=== PATIENT | female | born 1940 | race Caucasian/White ===

== ENCOUNTER 2023-09-27 19:19 | Emergency (ER) | payer MEDICARE ==
[~2023-09-27] VITALS: Ht 162.6 cm; Wt 65.8 kg
[2023-09-27 19:19] VITALS: BP 112/47; TEMP 98.2; O2SAT 96
== END 2023-09-27 20:48 | disposition home or self-care (01) ==
LOC: ER 19:33
DX: Z43.3 Encounter for attention to colostomy (principal); I10 Essential (primary) hypertension; Z85.038 Personal history of other malignant neoplasm of large intestine; Z88.0 Allergy status to penicillin; Z88.2 Allergy status to sulfonamides; Z88.1 Allergy status to other antibiotic agents

== ENCOUNTER 2023-10-19 15:25 | Emergency (ER) | payer MEDICARE ==
[~2023-10-19] VITALS: Ht 152.4 cm; Wt 74.8 kg
[2023-10-19 17:43] VITALS: BP 139/62; TEMP 98.7; O2SAT 99
== END 2023-10-19 17:42 | disposition home or self-care (01) ==
LOC: ER 15:28
DX: Z43.3 Encounter for attention to colostomy (principal); I10 Essential (primary) hypertension; Z60.2 Problems related to living alone; Z88.0 Allergy status to penicillin; Z88.2 Allergy status to sulfonamides

== ENCOUNTER → 2023-11-02 | Emergency (ER) | payer MEDICARE ==
[~2023-11-02] VITALS: Ht 152.4 cm; Wt 73.9 kg
[2023-11-02 12:01] VITALS: BP 125/61; TEMP 97.9
[2023-11-02] MEDS: LOPERAMIDE HCL (2 MG CAP) 2 MG CAPSULE PO ONE (13:23)
[2023-11-02 16:05] VITALS: O2SAT 97
== END | disposition home or self-care (01) ==
LOC: ER 11:54
DX: K94.09 Other complications of colostomy (principal); I10 Essential (primary) hypertension; Z88.0 Allergy status to penicillin; Z88.2 Allergy status to sulfonamides; Z60.2 Problems related to living alone

== ENCOUNTER 2023-11-09 14:06 | Emergency (ER) | payer MEDICARE ==
[~2023-11-09] VITALS: Ht 167.6 cm; Wt 74.8 kg
[2023-11-09 15:44] VITALS: BP 119/59; TEMP 208.2; O2SAT 95
== END 2023-11-09 15:44 | disposition home or self-care (01) ==
LOC: ER 14:44
DX: K94.03 Colostomy malfunction (principal); I10 Essential (primary) hypertension; Z85.038 Personal history of other malignant neoplasm of large intestine; Z88.0 Allergy status to penicillin; Z88.2 Allergy status to sulfonamides; Z88.8 Allergy status to other drugs, medicaments and biological substances; Z60.2 Problems related to living alone
CPT/HCPCS: 99283; A4362

== ENCOUNTER 2023-11-16 20:49 | Emergency (ER) | payer MEDICARE ==
[~2023-11-16] VITALS: Ht 167.6 cm; Wt 71.7 kg
[2023-11-16 21:37] VITALS: BP 143/56; TEMP 98.4
[2023-11-17 00:25] VITALS: O2SAT 100
== END 2023-11-17 00:25 | disposition home or self-care (01) ==
LOC: ER 20:52
DX: Z43.3 Encounter for attention to colostomy (principal); I10 Essential (primary) hypertension; Z85.038 Personal history of other malignant neoplasm of large intestine; Z88.2 Allergy status to sulfonamides; Z88.0 Allergy status to penicillin; Z88.8 Allergy status to other drugs, medicaments and biological substances; Z60.2 Problems related to living alone

== ENCOUNTER 2023-11-19 10:04 | Inpatient (IN) | payer MEDICARE ==
[~2023-11-19] VITALS: Ht 167.6 cm; Wt 74.8 kg
[2023-11-19] MEDS ORDERED: MORPHINE SULFATE INJ 2 MG/ML DISP.SYRIN ONE (10:25)
[2023-11-19] MEDS: IV NS 0.9% 1,000 ML BAG IV ONE (10:30)
[2023-11-19] MEDS: MORPHINE SULFATE INJ 2 MG/ML DISP.SYRIN IV ONE (10:30)
[2023-11-19 10:46] LABS: BASOPHILS % (AUTO) 0.6 % (0.0-2.0); EOSINOPHILS # (AUTO) 0.1 K/uL (0.0-0.7); EOSINOPHILS % (AUTO) 5.7 % (0.0-6.0); HEMATOCRIT 29 % (33-45); HEMOGLOBIN 9.5 g/dL (11.5-14.8); LYMPHOCYTES # (AUTO) 0.3 K/uL (0.8-4.8); LYMPHOCYTES % (AUTO) 12.5 % (20.0-44.0); MEAN CORPUSCULAR HEMOGLOBIN 28 PG (26.0-33.0); MEAN CORPUSCULAR HGB CONC 33 g/dl (31.0-36.0); MEAN CORPUSCULAR VOLUME 85 fL (82-100); MONOCYTES # (AUTO) 0.2 K/uL (0.1-1.30); MONOCYTES % (AUTO) 8.4 % (2.0-12.0); NEUTROPHILS # (AUTO) 1.7 K/uL (1.8-8.9); NEUTROPHILS % (AUTO) 72.8 % (43.0-81.0); PLATELET COUNT (AUTO) 99 K/uL (150-450); RED BLOOD CELL COUNT(AUTO) 3.45 MIL/uL (4.0-5.2); RED CELL DISTRIBUTION WIDTH 23.2 % (11.5-15.0); WHITE BLOOD COUNT (AUTO) 2.4 K/uL (4.3-11.0)
[2023-11-19 10:54] LABS: CALCIUM, SERUM 8.5 mg/dL (8.5-10.1); CARBON DIOXIDE 30 mmol/L (21-32); CHLORIDE 105 mmol/L (98-107); CREATININE 1.2 mg/dL (0.6-1.3); GLUCOSE 136 mg/dL (74-106); POTASSIUM 3.3 mmol/L (3.5-5.1); SODIUM SERUM 137 mmol/L (136-145); UREA NITROGEN, BLOOD 21 mg/dL (7-18)
[2023-11-19 11:40] LABS: ANISOCYTOSIS 2+; BASOPHILS % (MANUAL) 0 % (0.0-2.0); EOSINOPHILS % (MANUAL) 4 % (0-4); LYMPHOCYTES % (MANUAL) 14 % (16-48); MONOCYTES % (MANUAL) 6 % (0-11.0); NEUTROPHILS % (MANUAL) 76 (42-76); PLATELET ESTIMATE DECREASED
[2023-11-19] MEDS ORDERED: CHOL500062 PO (12:26)
[2023-11-19] MEDS ORDERED: ASPI-1420 PO (12:26)
[2023-11-19] MEDS ORDERED: ATOR20TA PO (12:26)
[2023-11-19] MEDS ORDERED: FERR325T24 PO (12:26)
[2023-11-19] MEDS ORDERED: AMLO-212 PO (12:26)
[2023-11-19] MEDS ORDERED: CYAN250010 PO (12:26)
[2023-11-19] MEDS ORDERED: FURO20TA4 PO (12:26)
[2023-11-19 13:00] VITALS: BP 160/52; TEMP 98.3; O2SAT 99
[2023-11-19] MEDS ORDERED: LOPERAMIDE HCL (2 MG CAP) 2 MG CAPSULE PO PRN (13:00)
[2023-11-19] MEDS ORDERED: ACETAMINOPHEN 325 MG TABLET PO PRN (13:00)
[2023-11-19] MEDS ORDERED: hydrALAZINE HCL IV 20 MG VIAL IV PRN (13:00)
[2023-11-19] MEDS ORDERED: ONDANSETRON HCL/PF 4 MG/2 ML VIAL IVP PRN (13:00)
[2023-11-19] MEDS: IV NS 0.9% 1,000 ML IV SCH (13:33)
[2023-11-19 16:00] VITALS: BP 141/72; TEMP 98.4; O2SAT 99
[2023-11-19] MEDS: POTASSIUM CHLORIDE 20 MEQ TAB.PRT.SR PO STA (16:42)
[2023-11-19] MEDS: ATORVASTATIN 10 MG TABLET PO SCH (17:20)
[2023-11-19 20:00] VITALS: BP 141/55; TEMP 98.1; O2SAT 99
[2023-11-19 20:18] VITALS: BP 141/55; TEMP 98.1; O2SAT 99
[2023-11-19] MEDS: HEPARIN SODIUM, PORCINE 5000 UNITS/1 ML VIAL SQ SCH (20:50)
[2023-11-19] MEDS: MORPHINE SULFATE INJ 2 MG/ML DISP.SYRIN IV PRN (22:39)
[2023-11-20] MEDS: TEMAZEPAM 7.5 MG CAPSULE PO PRN (00:43)
[2023-11-20 07:04] LABS: BASOPHILS % (AUTO) 0.8 % (0.0-2.0); EOSINOPHILS # (AUTO) 0.3 K/uL (0.0-0.7); EOSINOPHILS % (AUTO) 12.5 % (0.0-6.0); HEMATOCRIT 27 % (33-45); HEMOGLOBIN 8.7 g/dL (11.5-14.8); LYMPHOCYTES # (AUTO) 0.7 K/uL (0.8-4.8); LYMPHOCYTES % (AUTO) 27.4 % (20.0-44.0); MEAN CORPUSCULAR HEMOGLOBIN 27 PG (26.0-33.0); MEAN CORPUSCULAR HGB CONC 32 g/dl (31.0-36.0); MEAN CORPUSCULAR VOLUME 85 fL (82-100); MONOCYTES # (AUTO) 0.2 K/uL (0.1-1.30); MONOCYTES % (AUTO) 7.5 % (2.0-12.0); NEUTROPHILS # (AUTO) 1.4 K/uL (1.8-8.9); NEUTROPHILS % (AUTO) 51.8 % (43.0-81.0); PLATELET COUNT (AUTO) 88 K/uL (150-450); RED BLOOD CELL COUNT(AUTO) 3.17 MIL/uL (4.0-5.2); RED CELL DISTRIBUTION WIDTH 22.7 % (11.5-15.0); WHITE BLOOD COUNT (AUTO) 2.7 K/uL (4.3-11.0)
[2023-11-20 07:33] LABS: ALANINE AMINOTRANSFERASE 26 U/L (12-78); ALBUMIN 2.2 g/dL (3.4-5.0); ALKALINE PHOSPHATASE 82 U/L (46-116); ASPARTATE AMINOTRANSFERASE 32 U/L (15-37); BILIRUBIN,TOTAL 0.6 mg/dL (0.2-1.0); CALCIUM, SERUM 8.2 mg/dL (8.5-10.1); CARBON DIOXIDE 28 mmol/L (21-32); CHLORIDE 112 mmol/L (98-107); GLUCOSE 84 mg/dL (74-106); MAGNESIUM 1.6 mg/dL (1.8-2.4); PHOSPHORUS 2.3 mg/dL (2.5-4.9); POTASSIUM 3.7 mmol/L (3.5-5.1); SODIUM SERUM 141 mmol/L (136-145); TOTAL PROTEIN, SERUM 5.2 g/dL (6.4-8.2); UREA NITROGEN, BLOOD 14 mg/dL (7-18)
[2023-11-20 08:00] VITALS: BP 122/69; TEMP 98.2; O2SAT 98
[2023-11-20] MEDS: FERROUS SULFATE (325 MG) 325 MG/TAB TABLET PO SCH (09:10)
[2023-11-20] MEDS: FUROSEMIDE 20 MG TABLET PO SCH (09:10)
[2023-11-20] MEDS: ASPIRIN EC 81 MG TABLET.DR PO SCH (09:10)
[2023-11-20] MEDS: AMLODIPINE BESYLATE 5 MG TABLET PO SCH (09:11)
[2023-11-20 10:22] LABS: BASOPHILS % (MANUAL) 0 % (0.0-2.0); EOSINOPHILS % (MANUAL) 13 % (0-4); LYMPHOCYTES % (MANUAL) 24 % (16-48); MONOCYTES % (MANUAL) 3 % (0-11.0); NEUTROPHILS % (MANUAL) 60 (42-76); PLATELET ESTIMATE DECREASED
[2023-11-20 10:23] LABS: ANISOCYTOSIS 1+
[2023-11-20] MEDS: MAGNESIUM OXIDE 400 MG TABLET PO ONE (11:36)
[2023-11-20 16:00] VITALS: BP 155/63; TEMP 98.6; O2SAT 96
[2023-11-20] MEDS: K PHOS NEUTRAL 250 MG TABLET PO ONE (16:07)
[2023-11-20 20:00] VITALS: BP 145/62; TEMP 98.6; O2SAT 95
[2023-11-20 20:32] VITALS: BP 145/62; TEMP 98.6; O2SAT 95
[2023-11-20 20:47] VITALS: BP 145/62; TEMP 98.6; O2SAT 95
[2023-11-21 08:32] VITALS: BP 159/68; TEMP 98.5; O2SAT 96
[2023-11-21 09:37] LABS: BASOPHILS % (AUTO) 0.6 % (0.0-2.0); EOSINOPHILS # (AUTO) 0.3 K/uL (0.0-0.7); EOSINOPHILS % (AUTO) 9.7 % (0.0-6.0); HEMATOCRIT 29 % (33-45); HEMOGLOBIN 9.4 g/dL (11.5-14.8); LYMPHOCYTES # (AUTO) 0.7 K/uL (0.8-4.8); LYMPHOCYTES % (AUTO) 25.2 % (20.0-44.0); MEAN CORPUSCULAR HEMOGLOBIN 28 PG (26.0-33.0); MEAN CORPUSCULAR HGB CONC 33 g/dl (31.0-36.0); MEAN CORPUSCULAR VOLUME 84 fL (82-100); MONOCYTES # (AUTO) 0.2 K/uL (0.1-1.30); MONOCYTES % (AUTO) 8.6 % (2.0-12.0); NEUTROPHILS # (AUTO) 1.6 K/uL (1.8-8.9); NEUTROPHILS % (AUTO) 55.9 % (43.0-81.0); PLATELET COUNT (AUTO) 99 K/uL (150-450); RED BLOOD CELL COUNT(AUTO) 3.41 MIL/uL (4.0-5.2); RED CELL DISTRIBUTION WIDTH 22.2 % (11.5-15.0); WHITE BLOOD COUNT (AUTO) 2.9 K/uL (4.3-11.0)
[2023-11-21 09:43] LABS: CALCIUM, SERUM 8.6 mg/dL (8.5-10.1); CARBON DIOXIDE 26 mmol/L (21-32); CHLORIDE 107 mmol/L (98-107); CREATININE 1.2 mg/dL (0.6-1.3); GLUCOSE 120 mg/dL (74-106); POTASSIUM 3.7 mmol/L (3.5-5.1); SODIUM SERUM 140 mmol/L (136-145); UREA NITROGEN, BLOOD 13 mg/dL (7-18)
[2023-11-21 09:51] LABS: ALANINE AMINOTRANSFERASE 27 U/L (12-78); ALKALINE PHOSPHATASE 94 U/L (46-116); ASPARTATE AMINOTRANSFERASE 27 U/L (15-37); BILIRUBIN,TOTAL 0.4 mg/dL (0.2-1.0); PHOSPHORUS 3.5 mg/dL (2.5-4.9); TOTAL PROTEIN, SERUM 5.1 g/dL (6.4-8.2)
[2023-11-21] MEDS: POLYETHYLENE GLYCOL 3350 17 GM POWD.PACK PO ONE (10:25)
[2023-11-21 11:30] LABS: ANISOCYTOSIS 1+; BASOPHILS % (MANUAL) 0 % (0.0-2.0); EOSINOPHILS % (MANUAL) 10 % (0-4); LYMPHOCYTES % (MANUAL) 22 % (16-48); MONOCYTES % (MANUAL) 11 % (0-11.0); NEUTROPHILS % (MANUAL) 59 (42-76); PLATELET ESTIMATE DECREASED
[2023-11-21 16:12] VITALS: BP 136/54; TEMP 98.2; O2SAT 97
[2023-11-21] MEDS: DOCUSATE SODIUM LIQ 100 MG/10 ML UDC PO ONE (19:50)
[2023-11-21 20:00] VITALS: BP 139/61; TEMP 98.4; O2SAT 97
[2023-11-21] MEDS ORDERED: MENTHOL/CETYLPYRD (CEPACOL) 1 LOZ LOZENGE PO PRN (22:00)
[2023-11-22 09:32] VITALS: BP 127/56
[2023-11-22 10:21] LABS: CALCIUM, SERUM 8.6 mg/dL (8.5-10.1); CARBON DIOXIDE 27 mmol/L (21-32); CHLORIDE 109 mmol/L (98-107); CREATININE 1.1 mg/dL (0.6-1.3); GLUCOSE 118 mg/dL (74-106); POTASSIUM 3.4 mmol/L (3.5-5.1); SODIUM SERUM 143 mmol/L (136-145); UREA NITROGEN, BLOOD 15 mg/dL (7-18)
[2023-11-22] MEDS ORDERED: POLY17PO4 PO (11:23)
== END 2023-11-22 15:45 | disposition home health service (06) | DRG 641 ==
LOC: ER 10:12 → MED 12:36
PROVIDERS: ADMIT Internal Medicine; ATTEND Internal Medicine
DX: E87.6 Hypokalemia (principal); D61.818 Other pancytopenia; R19.7 Diarrhea, unspecified; I10 Essential (primary) hypertension; Z85.038 Personal history of other malignant neoplasm of large intestine; Z93.3 Colostomy status; E78.5 Hyperlipidemia, unspecified; D50.9 Iron deficiency anemia, unspecified; Z88.0 Allergy status to penicillin; Z88.1 Allergy status to other antibiotic agents; Z88.2 Allergy status to sulfonamides; Z92.21 Personal history of antineoplastic chemotherapy; K59.00 Constipation, unspecified
CPT/HCPCS: 36415; 80048-TC; 80053-TC; 83735-TC; 84100-TC; 85025-TC; A4223; A6403; G0378; J1644; J2270; J7030

== ENCOUNTER 2023-11-23 13:25 | Inpatient (IN) | payer MEDICARE ==
[~2023-11-23] VITALS: Ht 167.6 cm; Wt 86.2 kg
[~2023-11-23 13:25] MED LIST: AMLO-212 PO; ASPI-1420 PO; ATOR20TA PO; CHOL500062 PO; CYAN250010 PO; FERR325T24 PO; FURO20TA4 PO; POLY17PO4 PO
[2023-11-23 15:39] LABS: BASOPHILS % (AUTO) 0.6 % (0.0-2.0); EOSINOPHILS # (AUTO) 0.1 K/uL (0.0-0.7); EOSINOPHILS % (AUTO) 2.9 % (0.0-6.0); HEMATOCRIT 29 % (33-45); HEMOGLOBIN 9.5 g/dL (11.5-14.8); LYMPHOCYTES # (AUTO) 0.5 K/uL (0.8-4.8); MEAN CORPUSCULAR HEMOGLOBIN 28 PG (26.0-33.0); MEAN CORPUSCULAR HGB CONC 32 g/dl (31.0-36.0); MEAN CORPUSCULAR VOLUME 86 fL (82-100); MONOCYTES # (AUTO) 0.4 K/uL (0.1-1.30); MONOCYTES % (AUTO) 8.3 % (2.0-12.0); NEUTROPHILS % (AUTO) 78.2 % (43.0-81.0); PLATELET COUNT (AUTO) 102 K/uL (150-450); RED BLOOD CELL COUNT(AUTO) 3.41 MIL/uL (4.0-5.2); WHITE BLOOD COUNT (AUTO) 5.1 K/uL (4.3-11.0)
[2023-11-23 15:48] LABS: CARBON DIOXIDE 27 mmol/L (21-32); CHLORIDE 108 mmol/L (98-107); CREATININE 1.3 mg/dL (0.6-1.3); GLUCOSE 89 mg/dL (74-106); POTASSIUM 3.3 mmol/L (3.5-5.1); SODIUM SERUM 142 mmol/L (136-145); UREA NITROGEN, BLOOD 16 mg/dL (7-18)
[2023-11-23 15:53] LABS: ALANINE AMINOTRANSFERASE 23 U/L (12-78); ALBUMIN 2.2 g/dL (3.4-5.0); ALKALINE PHOSPHATASE 103 U/L (46-116); ASPARTATE AMINOTRANSFERASE 28 U/L (15-37); BILIRUBIN,DIRECT 0.1 mg/dL (0.0-0.2); BILIRUBIN,TOTAL 0.5 mg/dL (0.2-1.0); LIPASE 26 U/L (16-77); TOTAL PROTEIN, SERUM 5.6 g/dL (6.4-8.2)
[2023-11-23] MEDS ORDERED: IOHEXOL-300 100 ML VIAL IV ONE (15:55)
[2023-11-23 16:03] LABS: INR 1.03 (0.91-1.10); PARTIAL THROMBOPLASTIN TIME 24.2 SEC (24.3-34.3); PROTHROMBIN TIME 10.9 SECS (9.2-11.1)
[2023-11-23 16:14] LABS: LACTIC ACID 1.9 mmol/L (0.4-2.0)
[2023-11-23] MEDS: METRONIDAZOLE 500MG/ NS 100ML 500 MG in PREMIX 1 EA IV SCH (18:15)
[2023-11-23] MEDS: CIPROFLOXACIN IV RTU 400 MG in PREMIX 1 EA IV SCH (18:50)
[2023-11-24] MEDS ORDERED: METRONIDAZOLE 500MG/ NS 100ML 100 ML IV ONE (04:22)
[2023-11-24] MEDS ORDERED: GENTAMICIN OPTH SOLN 0.3% 5 ML BOTTLE ONE (06:31)
[2023-11-24] MEDS ORDERED: CIPROFLOXACIN IV RTU 200 ML IV ONE (06:31)
[2023-11-24] MEDS: GENTAMICIN OPTH SOLN 0.3% 5 ML BOTTLE OP ONE (06:47)
[2023-11-24] MEDS: POLYVINYL ALCOHOL 15 ML BOTTLE RIGHTEYE STA (06:50)
[2023-11-24] MEDS ORDERED: POLYVINYL ALCOHOL 15 ML BOTTLE ONE (06:50)
[2023-11-24 07:00] VITALS: BP 155/82; TEMP 98; O2SAT 99
[2023-11-24] MEDS: CIPROFLOXACIN IV RTU 400 MG in PREMIX 1 EA IV ONE (07:10)
[2023-11-24] MEDS: METRONIDAZOLE 500MG/ NS 100ML 500 MG in PREMIX 1 EA IV ONE (08:10)
[2023-11-24 12:25] VITALS: BP 151/55; TEMP 97; O2SAT 99
[2023-11-24] MEDS ORDERED: Z GUARD REMEDY 4 OZ OINT TP PRN (14:30)
[2023-11-24] MEDS ORDERED: MAGNESIUM HYDROXIDE 30 ML UDC PO PRN (14:30)
[2023-11-24] MEDS ORDERED: MAG HYDROX/AL HYDROX/SIMETH 30 ML UDC PO PRN (14:30)
[2023-11-24] MEDS: ACETAMINOPHEN 325 MG TABLET PO PRN (15:14)
[2023-11-24] MEDS: ENOXAPARIN SODIUM 30 MG/0.3 ML DISP.SYRIN SQ SCH (15:29)
[2023-11-24] MEDS: POTASSIUM CHLORIDE 20 MEQ TAB.PRT.SR PO ONE (16:51)
[2023-11-24 18:31] VITALS: BP 143/59; TEMP 97.3; O2SAT 100
[2023-11-24 20:00] VITALS: BP 155/69; TEMP 98.1; O2SAT 97
[2023-11-24] MEDS: IV 1/2NS 1000 ML 1,000 ML IV PRN (20:07)
[2023-11-24] MEDS ORDERED: POLYVINYL ALCOHOL 15 ML BOTTLE EACHEYE PRN (21:30)
[2023-11-24] MEDS: GENTAMICIN OPTH SOLN 0.3% 5 ML BOTTLE EACHEYE SCH (21:30)
[2023-11-24] MEDS: ATORVASTATIN 10 MG TABLET PO SCH (22:55)
[2023-11-25 04:00] VITALS: BP 138/85; TEMP 98.3; O2SAT 98
[2023-11-25 08:00] VITALS: BP 149/59; TEMP 98.1; O2SAT 99
[2023-11-25] MEDS: CYANOCOBALAMIN 500 MCG TABLET PO SCH (09:36)
[2023-11-25] MEDS: FERROUS SULFATE (325 MG) 325 MG/TAB TABLET PO SCH (09:37)
[2023-11-25] MEDS: AMLODIPINE BESYLATE 5 MG TABLET PO SCH (09:37)
[2023-11-25] MEDS: ASPIRIN EC 81 MG TABLET.DR PO SCH (09:37)
[2023-11-25] MEDS: PANTOPRAZOLE 40 MG TABLET.DR PO SCH (09:39)
[2023-11-25 11:08] LABS: BASOPHILS % (AUTO) 0.9 % (0.0-2.0); EOSINOPHILS # (AUTO) 0.2 K/uL (0.0-0.7); EOSINOPHILS % (AUTO) 4.4 % (0.0-6.0); HEMATOCRIT 28 % (33-45); HEMOGLOBIN 9.1 g/dL (11.5-14.8); LYMPHOCYTES # (AUTO) 0.6 K/uL (0.8-4.8); LYMPHOCYTES % (AUTO) 16.5 % (20.0-44.0); MEAN CORPUSCULAR HEMOGLOBIN 28 PG (26.0-33.0); MEAN CORPUSCULAR HGB CONC 33 g/dl (31.0-36.0); MEAN CORPUSCULAR VOLUME 86 fL (82-100); MONOCYTES # (AUTO) 0.3 K/uL (0.1-1.30); MONOCYTES % (AUTO) 9.5 % (2.0-12.0); NEUTROPHILS # (AUTO) 2.5 K/uL (1.8-8.9); NEUTROPHILS % (AUTO) 68.7 % (43.0-81.0); PLATELET COUNT (AUTO) 84 K/uL (150-450); RED BLOOD CELL COUNT(AUTO) 3.26 MIL/uL (4.0-5.2); RED CELL DISTRIBUTION WIDTH 23.6 % (11.5-15.0); WHITE BLOOD COUNT (AUTO) 3.7 K/uL (4.3-11.0)
[2023-11-25 11:21] LABS: CALCIUM, SERUM 8.9 mg/dL (8.5-10.1); CARBON DIOXIDE 22 mmol/L (21-32); CHLORIDE 109 mmol/L (98-107); CREATININE 1.1 mg/dL (0.6-1.3); GLUCOSE 118 mg/dL (74-106); MAGNESIUM 1.5 mg/dL (1.8-2.4); PHOSPHORUS 2.5 mg/dL (2.5-4.9); POTASSIUM 3.7 mmol/L (3.5-5.1); SODIUM SERUM 143 mmol/L (136-145); UREA NITROGEN, BLOOD 11 mg/dL (7-18)
[2023-11-25 11:33] LABS: ANISOCYTOSIS 1+; BASOPHILS % (MANUAL) 0 % (0.0-2.0); EOSINOPHILS % (MANUAL) 7 % (0-4); LYMPHOCYTES % (MANUAL) 21 % (16-48); MONOCYTES % (MANUAL) 5 % (0-11.0); NEUTROPHILS % (MANUAL) 67 (42-76); PLATELET ESTIMATE DECREASED
[2023-11-25 11:34] LABS: CHOLESTEROL 123 mg/dL (<200); HDL CHOLESTEROL 66 mg/dL (40-60); LDL 42 mg/dL (0-99); TRIGLYCERIDES 97 mg/dL (30-150)
[2023-11-25 12:00] VITALS: BP 149/59; TEMP 98.1; O2SAT 99
[2023-11-25 13:12] LABS: APPEARANCE,URINE SLIGHTLY CLOUDY (CLEAR); BILIRUBIN,URINE NEGATIVE (NEGATIVE); BLOOD, URINE 2+ Ery/uL (NEGATIVE); COLOR,URINE DARK YELLOW (YELLOW); KETONES,URINE NEGATIVE (NEGATIVE); LEUKOCYTE ESTERASE ,URINE 2+ (NEGATIVE); NITRITE, URINE POSITIVE (NEGATIVE); PH,URINE 6.5 (5.0-8.0); PROTEIN,URINE 1+ mg/dl (NEGATIVE); UGLUCOSE NEGATIVE (NEGATIVE); UROBILINOGEN,URINE 0.2 EU/dL (0.2)
[2023-11-25] MEDS: Magnesium 1GM/D5W 100ML PREMIX 100 ML IV SCH (13:34)
[2023-11-25] MEDS: METRONIDAZOLE 500MG/ NS 100ML 500 MG in PREMIX 1 EA IV SCH (13:35)
[2023-11-25 13:50] LABS: ADD URINE CULTURE YES; BACTERIA,URINE Moderate /HPF (None Seen); SQUAMOUS EPITHELIAL CELL,UR Rare /HPF (None Seen); WBC,URINE 51-80 /HPF (0-3)
[2023-11-25 16:00] VITALS: BP 159/81; TEMP 97; O2SAT 98
[2023-11-25] MEDS: LEVOFLOXACIN 500 MG /D5W 100ML 500 MG in PREMIX 1 EA IV ONE (17:50)
[2023-11-25 20:00] VITALS: BP 150/68; TEMP 98.2; O2SAT 100
[2023-11-26 04:00] VITALS: BP 166/76; TEMP 97.4; O2SAT 98
[2023-11-26] MEDS: AMLODIPINE BESYLATE 5 MG TABLET PO SCH (09:10)
[2023-11-26 11:16] LABS: CALCIUM, SERUM 8.7 mg/dL (8.5-10.1); CARBON DIOXIDE 24 mmol/L (21-32); CHLORIDE 108 mmol/L (98-107); GLUCOSE 114 mg/dL (74-106); MAGNESIUM 2.1 mg/dL (1.8-2.4); POTASSIUM 3.4 mmol/L (3.5-5.1); SODIUM SERUM 140 mmol/L (136-145); UREA NITROGEN, BLOOD 8 mg/dL (7-18)
[2023-11-26 12:00] VITALS: BP 156/69; TEMP 97.8; O2SAT 99
[2023-11-26] MEDS: LEVOFLOXACIN 250 MG /D5W 50 ML 250 MG in PREMIX 1 EA IV SCH (16:09)
[2023-11-26] MEDS: POTASSIUM CHLORIDE 20 MEQ TAB.PRT.SR PO SCH (16:09)
[2023-11-26 20:00] VITALS: BP 148/53; TEMP 98.2; O2SAT 100
[2023-11-27 04:00] VITALS: BP 148/53; TEMP 98.2; O2SAT 100
[2023-11-27 08:00] VITALS: BP 132/63; TEMP 97.9; O2SAT 97
[2023-11-27 16:00] VITALS: BP 147/66; TEMP 98.4; O2SAT 100
[2023-11-27] MEDS: TOBRAMYCIN/DEXAMETH OPHTH OINT 3.5 GM TUBE EACHEYE SCH (18:00)
[2023-11-27 20:00] VITALS: BP 124/53; TEMP 98.1; O2SAT 99
[2023-11-28] VITALS: BP 124/60; TEMP 98.1; O2SAT 99
[2023-11-28 04:00] VITALS: BP 140/59; TEMP 98.5; O2SAT 97
[2023-11-28 08:00] VITALS: BP 145/62; TEMP 97.2; O2SAT 97
[2023-11-28 16:00] VITALS: BP 141/63; TEMP 97.3; O2SAT 97
[2023-11-28 20:00] VITALS: BP 129/55; TEMP 98.4; O2SAT 97
[2023-11-29 04:00] VITALS: BP 124/64; TEMP 97.8; O2SAT 98
[2023-11-29 08:00] VITALS: BP 168/74; TEMP 98.1; O2SAT 100
[2023-11-29] MEDS ORDERED: LEVOFLOXACIN (250MG) 250 MG TABLET PO SCH ×2 (10:00→18:00)
[2023-11-29] MEDS ORDERED: POLYETHYLENE GLYCOL 3350 17 GM POWD.PACK PO PRN (10:30)
[2023-11-29] MEDS: NITROFURANTOIN/MONOHYDRATE MACROCRYSTALS 100 MG CAPSULE PO SCH (11:12)
[2023-11-29 11:14] LABS: BASOPHILS % (AUTO) 1.2 % (0.0-2.0); EOSINOPHILS # (AUTO) 0.2 K/uL (0.0-0.7); EOSINOPHILS % (AUTO) 7.3 % (0.0-6.0); HEMATOCRIT 28 % (33-45); HEMOGLOBIN 9.3 g/dL (11.5-14.8); LYMPHOCYTES # (AUTO) 0.4 K/uL (0.8-4.8); LYMPHOCYTES % (AUTO) 20.7 % (20.0-44.0); MEAN CORPUSCULAR HEMOGLOBIN 29 PG (26.0-33.0); MEAN CORPUSCULAR HGB CONC 33 g/dl (31.0-36.0); MEAN CORPUSCULAR VOLUME 87 fL (82-100); MONOCYTES # (AUTO) 0.4 K/uL (0.1-1.30); MONOCYTES % (AUTO) 20.3 % (2.0-12.0); NEUTROPHILS # (AUTO) 1.1 K/uL (1.8-8.9); NEUTROPHILS % (AUTO) 50.5 % (43.0-81.0); PLATELET COUNT (AUTO) 91 K/uL (150-450); RED BLOOD CELL COUNT(AUTO) 3.25 MIL/uL (4.0-5.2); RED CELL DISTRIBUTION WIDTH 25.5 % (11.5-15.0); WHITE BLOOD COUNT (AUTO) 2.1 K/uL (4.3-11.0)
[2023-11-29 11:39] LABS: CALCIUM, SERUM 8.7 mg/dL (8.5-10.1); CARBON DIOXIDE 23 mmol/L (21-32); CHLORIDE 109 mmol/L (98-107); CREATININE 1.2 mg/dL (0.6-1.3); GLUCOSE 147 mg/dL (74-106); POTASSIUM 3.1 mmol/L (3.5-5.1); SODIUM SERUM 139 mmol/L (136-145); UREA NITROGEN, BLOOD 10 mg/dL (7-18)
[2023-11-29 11:44] LABS: EOSINOPHILS % (MANUAL) 5 % (0-4); LYMPHOCYTES % (MANUAL) 16 % (16-48); METAMYELOCYTES % 1 % (0-0); MONOCYTES % (MANUAL) 17 % (0-11.0); MYELOCYTES % 1 % (0-0); NEUTROPHILS % (MANUAL) 59 (42-76); PROMYELOCYTES % 1 % (0-0)
[2023-11-29 11:45] LABS: ANISOCYTOSIS 1+; HYPOCHROMASIA 1+; OVALOCYTES 1+; PLATELET ESTIMATE DECREASED
[2023-11-29 12:00] VITALS: BP 129/84; TEMP 98.3; O2SAT 98
[2023-11-29] MEDS ORDERED: POTASSIUM CHLORIDE 20 MEQ TAB.PRT.SR PO SCH (14:30)
[2023-11-29] MEDS: POTASSIUM CHLORIDE 20 MEQ TAB.PRT.SR PO ONE (14:41)
[2023-11-29 18:00] VITALS: BP 152/84; TEMP 98.1; O2SAT 98
[2023-11-29 20:00] VITALS: BP 145/74; TEMP 98.5; O2SAT 98
[2023-11-29] MEDS ORDERED: ONDANSETRON HCL/PF 4 MG/2 ML VIAL IV PRN (21:00)
[2023-11-29] MEDS: ONDANSETRON HCL/PF 4 MG/2 ML VIAL IVP PRN (21:02)
[2023-11-30 07:18] LABS: CALCIUM, SERUM 8.2 mg/dL (8.5-10.1); CARBON DIOXIDE 22 mmol/L (21-32); CHLORIDE 105 mmol/L (98-107); CREATININE 1.1 mg/dL (0.6-1.3); GLUCOSE 80 mg/dL (74-106); POTASSIUM 4.3 mmol/L (3.5-5.1); SODIUM SERUM 132 mmol/L (136-145); UREA NITROGEN, BLOOD 11 mg/dL (7-18)
[2023-11-30 08:00] VITALS: BP 124/49; TEMP 99.3; O2SAT 95
[2023-11-30] MEDS: ENSURE ENLIVE 237 ML LIQUID (VANILLA) PO SCH (08:26)
[2023-11-30] MEDS ORDERED: CEFTRIAXONE 2 G in IV D5W 100 ML IV SCH (13:00)
[2023-11-30] MEDS: MEROPENEM 500 MG in IV NS 0.9% 50 ML IV SCH (14:43)
[2023-11-30 16:00] VITALS: BP 151/69; TEMP 98.2; O2SAT 98
[2023-11-30 20:00] VITALS: BP 139/55; TEMP 98.2; O2SAT 95
[2023-12-01 04:16] VITALS: BP 139/55; TEMP 98.2; O2SAT 95
[2023-12-01 08:00] VITALS: BP 163/86; TEMP 98.4; O2SAT 98
[2023-12-01 16:00] VITALS: BP 128/61; TEMP 98.6; O2SAT 96
[2023-12-01 18:00] VITALS: BP 128/61; TEMP 98.6; O2SAT 96
[2023-12-01 20:00] VITALS: BP_SYST 127; BP_SYST 142; BP_DIAS 59; BP_DIAS 65; TEMP 98.4; TEMP 98.9; O2SAT 96; O2SAT 97
[2023-12-01] MEDS: MEROPENEM 1 G in IV NS 0.9% 100 ML IV SCH (20:11)
[2023-12-02] VITALS (10 sets, daily range): BP systolic 126–145; BP diastolic 60–72; TEMP 98.2–99.3; O2SAT 93–100
[2023-12-02] MEDS ORDERED: BISACODYL SUPP (10 MG) 10 MG/SUPP.RECT SUPP.RECT RC ONE ×2 (10:30)
[2023-12-02] MEDS: IPRATROPIUM NEB FS 0.5 MG/2.5 ML AMPUL.NEB NEB SCH (14:26)
[2023-12-02] MEDS: ALBUTEROL FS 2.5 MG/3 ML VIAL.NEB NEB SCH (14:27)
[2023-12-02] MEDS: FLUTICASONE PROPIONATE 16 GM BOTTLE NS SCH (15:20)
[2023-12-02] MEDS: LACTULOSE 10 G/15 ML UDC (PYXIS) PO PRN (16:54)
[2023-12-03] VITALS (14 sets, daily range): BP systolic 121–153; BP diastolic 59–86; TEMP 97.9–98.4; O2SAT 94–98
[2023-12-03] MEDS: CLOTRIMAZOLE 1% 15 GM TUBE TP SCH (08:33)
[2023-12-03] MEDS: BENZONATATE 100 MG CAPSULE PO PRN (12:17)
[2023-12-03 12:57] LABS: CALCIUM, SERUM 8.3 mg/dL (8.5-10.1); CARBON DIOXIDE 23 mmol/L (21-32); CHLORIDE 107 mmol/L (98-107); CREATININE 1.3 mg/dL (0.6-1.3); GLUCOSE 92 mg/dL (74-106); MAGNESIUM 1.8 mg/dL (1.8-2.4); POTASSIUM 3.7 mmol/L (3.5-5.1); SODIUM SERUM 137 mmol/L (136-145); UREA NITROGEN, BLOOD 13 mg/dL (7-18)
[2023-12-03 13:19] LABS: BASOPHILS % (AUTO) 0.8 % (0.0-2.0); EOSINOPHILS % (AUTO) 1.6 % (0.0-6.0); HEMATOCRIT 30 % (33-45); HEMOGLOBIN 9.7 g/dL (11.5-14.8); LYMPHOCYTES # (AUTO) 0.4 K/uL (0.8-4.8); LYMPHOCYTES % (AUTO) 15.8 % (20.0-44.0); MEAN CORPUSCULAR HEMOGLOBIN 29 PG (26.0-33.0); MEAN CORPUSCULAR HGB CONC 33 g/dl (31.0-36.0); MEAN CORPUSCULAR VOLUME 88 fL (82-100); MONOCYTES # (AUTO) 0.5 K/uL (0.1-1.30); MONOCYTES % (AUTO) 21.6 % (2.0-12.0); NEUTROPHILS # (AUTO) 1.4 K/uL (1.8-8.9); NEUTROPHILS % (AUTO) 60.2 % (43.0-81.0); PLATELET COUNT (AUTO) 97 K/uL (150-450); RED BLOOD CELL COUNT(AUTO) 3.35 MIL/uL (4.0-5.2); RED CELL DISTRIBUTION WIDTH 25.6 % (11.5-15.0); WHITE BLOOD COUNT (AUTO) 2.3 K/uL (4.3-11.0)
[2023-12-03 13:36] LABS: ANISOCYTOSIS 1+; BASOPHILS % (MANUAL) 0 % (0.0-2.0); EOSINOPHILS % (MANUAL) 4 % (0-4); LYMPHOCYTES % (MANUAL) 13 % (16-48); MONOCYTES % (MANUAL) 18 % (0-11.0); NEUTROPHILS % (MANUAL) 65 (42-76); OVALOCYTES FEW; PLATELET ESTIMATE DECREASED
[2023-12-04] VITALS (10 sets, daily range): BP systolic 131–171; BP diastolic 60–77; TEMP 97.7–98.1; O2SAT 94–98
[2023-12-04] MEDS: dexaMETHasone SOD PHOSPHATE 10 MG/ML VIAL IV ONE (12:06)
[2023-12-05 04:00] VITALS: BP 168/72; TEMP 98.1; O2SAT 95
[2023-12-05 08:00] VITALS: BP_SYST 156; BP_SYST 166; BP_DIAS 71; TEMP 97.7; O2SAT 95; O2SAT 97
[2023-12-05 08:58] LABS: BASOPHILS % (AUTO) 0.5 % (0.0-2.0); HEMATOCRIT 33 % (33-45); HEMOGLOBIN 10.5 g/dL (11.5-14.8); LYMPHOCYTES # (AUTO) 0.4 K/uL (0.8-4.8); LYMPHOCYTES % (AUTO) 10.7 % (20.0-44.0); MEAN CORPUSCULAR HEMOGLOBIN 28 PG (26.0-33.0); MEAN CORPUSCULAR HGB CONC 32 g/dl (31.0-36.0); MEAN CORPUSCULAR VOLUME 88 fL (82-100); MONOCYTES # (AUTO) 0.3 K/uL (0.1-1.30); MONOCYTES % (AUTO) 7.6 % (2.0-12.0); NEUTROPHILS # (AUTO) 2.8 K/uL (1.8-8.9); NEUTROPHILS % (AUTO) 81.2 % (43.0-81.0); PLATELET COUNT (AUTO) 132 K/uL (150-450); RED BLOOD CELL COUNT(AUTO) 3.71 MIL/uL (4.0-5.2); RED CELL DISTRIBUTION WIDTH 25.3 % (11.5-15.0); WHITE BLOOD COUNT (AUTO) 3.4 K/uL (4.3-11.0)
[2023-12-05 09:11] LABS: ALANINE AMINOTRANSFERASE 19 U/L (12-78); ALBUMIN 2.1 g/dL (3.4-5.0); ALKALINE PHOSPHATASE 122 U/L (46-116); ASPARTATE AMINOTRANSFERASE 32 U/L (15-37); BILIRUBIN,DIRECT 0.1 mg/dL (0.0-0.2); BILIRUBIN,TOTAL 0.3 mg/dL (0.2-1.0); CALCIUM, SERUM 8.6 mg/dL (8.5-10.1); CARBON DIOXIDE 23 mmol/L (21-32); CHLORIDE 106 mmol/L (98-107); CREATININE 1.2 mg/dL (0.6-1.3); GLUCOSE 120 mg/dL (74-106); POTASSIUM 3.9 mmol/L (3.5-5.1); SODIUM SERUM 138 mmol/L (136-145); TOTAL PROTEIN, SERUM 5.7 g/dL (6.4-8.2); UREA NITROGEN, BLOOD 15 mg/dL (7-18)
[2023-12-05 09:24] LABS: D-DIMER 1.28 mg/L(FEU (0.17-0.50); INR 0.94 (0.91-1.10); PARTIAL THROMBOPLASTIN TIME 26.9 SEC (24.3-34.3)
[2023-12-05 10:05] LABS: ANISOCYTOSIS 2+; PLATELET ESTIMATE DECREASED
[2023-12-05 10:34] LABS: C-REACTIVE PROTEIN 0.63 mg/dL (0.0-0.30)
[2023-12-05] MEDS: REMDESIVIR (CHARGED) 200 MG, *LOADING DOSE 1 EA in IV NS 0.9% 210 ML IV ONE (10:37)
[2023-12-05] MEDS ORDERED: ALBUTEROL SULFATE 8 GM HFA.AER.AD IH PRN (11:00)
[2023-12-05] MEDS: BENZONATATE 100 MG CAPSULE PO SCH (12:57)
[2023-12-05] MEDS: predniSONE 20 MG TABLET PO SCH (12:57)
[2023-12-05] MEDS: FLUTICASONE/VILANTEROL 1 EACH BLST.W.DEV IH SCH (13:33)
[2023-12-05 16:00] VITALS: BP 136/71; TEMP 98.2; O2SAT 99
[2023-12-05 18:00] VITALS: BP 136/71; TEMP 98.2; O2SAT 99
[2023-12-05 20:00] VITALS: BP 141/76; TEMP 98.2; O2SAT 96
[2023-12-06 04:00] VITALS: BP 137/74; TEMP 98.1; O2SAT 97
[2023-12-06 08:00] VITALS: BP 160/75; TEMP 97.7; O2SAT 96
[2023-12-06] MEDS: REMDESIVIR (CHARGED) 100 MG in IV NS 0.9% 80 ML IV SCH (10:42)
[2023-12-06 12:24] LABS: INR 0.93 (0.91-1.10); PARTIAL THROMBOPLASTIN TIME 26.1 SEC (24.3-34.3); PROTHROMBIN TIME 9.9 SECS (9.2-11.1)
[2023-12-06 12:25] LABS: ALANINE AMINOTRANSFERASE 19 U/L (12-78); ALBUMIN 1.9 g/dL (3.4-5.0); ALKALINE PHOSPHATASE 105 U/L (46-116); ASPARTATE AMINOTRANSFERASE 31 U/L (15-37); BILIRUBIN,DIRECT 0.1 mg/dL (0.0-0.2); BILIRUBIN,TOTAL 0.2 mg/dL (0.2-1.0); CALCIUM, SERUM 8.2 mg/dL (8.5-10.1); CARBON DIOXIDE 27 mmol/L (21-32); CHLORIDE 109 mmol/L (98-107); GLUCOSE 124 mg/dL (74-106); POTASSIUM 3.6 mmol/L (3.5-5.1); SODIUM SERUM 140 mmol/L (136-145); TOTAL PROTEIN, SERUM 5.1 g/dL (6.4-8.2); UREA NITROGEN, BLOOD 18 mg/dL (7-18)
[2023-12-06 12:34] LABS: BASOPHILS % (AUTO) 0.2 % (0.0-2.0); HEMATOCRIT 28 % (33-45); HEMOGLOBIN 9.4 g/dL (11.5-14.8); LYMPHOCYTES # (AUTO) 0.5 K/uL (0.8-4.8); LYMPHOCYTES % (AUTO) 9.3 % (20.0-44.0); MEAN CORPUSCULAR HEMOGLOBIN 29 PG (26.0-33.0); MEAN CORPUSCULAR HGB CONC 33 g/dl (31.0-36.0); MEAN CORPUSCULAR VOLUME 88 fL (82-100); MONOCYTES # (AUTO) 0.5 K/uL (0.1-1.30); MONOCYTES % (AUTO) 9.1 % (2.0-12.0); NEUTROPHILS # (AUTO) 4.3 K/uL (1.8-8.9); NEUTROPHILS % (AUTO) 81.4 % (43.0-81.0); PLATELET COUNT (AUTO) 139 K/uL (150-450); RED BLOOD CELL COUNT(AUTO) 3.21 MIL/uL (4.0-5.2); RED CELL DISTRIBUTION WIDTH 24.1 % (11.5-15.0); WHITE BLOOD COUNT (AUTO) 5.3 K/uL (4.3-11.0)
[2023-12-06 16:00] VITALS: BP 132/94; TEMP 98.2; O2SAT 96
[2023-12-06 20:00] VITALS: BP 137/65; TEMP 98.1; O2SAT 97
[2023-12-07 06:00] VITALS: BP 122/71; TEMP 98; O2SAT 98
[2023-12-07 08:00] LABS: BASOPHILS % (AUTO) 0.2 % (0.0-2.0); HEMATOCRIT 33 % (33-45); HEMOGLOBIN 10.6 g/dL (11.5-14.8); LYMPHOCYTES # (AUTO) 0.8 K/uL (0.8-4.8); LYMPHOCYTES % (AUTO) 13.3 % (20.0-44.0); MEAN CORPUSCULAR HEMOGLOBIN 28 PG (26.0-33.0); MEAN CORPUSCULAR HGB CONC 32 g/dl (31.0-36.0); MEAN CORPUSCULAR VOLUME 87 fL (82-100); MONOCYTES # (AUTO) 0.6 K/uL (0.1-1.30); MONOCYTES % (AUTO) 10.1 % (2.0-12.0); NEUTROPHILS # (AUTO) 4.4 K/uL (1.8-8.9); NEUTROPHILS % (AUTO) 76.4 % (43.0-81.0); PLATELET COUNT (AUTO) 162 K/uL (150-450); RED BLOOD CELL COUNT(AUTO) 3.77 MIL/uL (4.0-5.2); RED CELL DISTRIBUTION WIDTH 24.8 % (11.5-15.0); WHITE BLOOD COUNT (AUTO) 5.7 K/uL (4.3-11.0)
[2023-12-07 08:13] LABS: INR 0.96 (0.91-1.10); PARTIAL THROMBOPLASTIN TIME 25.8 SEC (24.3-34.3); PROTHROMBIN TIME 10.2 SECS (9.2-11.1)
[2023-12-07 08:24] LABS: ALANINE AMINOTRANSFERASE 26 U/L (12-78); ALBUMIN 2.1 g/dL (3.4-5.0); ALKALINE PHOSPHATASE 111 U/L (46-116); ASPARTATE AMINOTRANSFERASE 36 U/L (15-37); BILIRUBIN,DIRECT 0.1 mg/dL (0.0-0.2); BILIRUBIN,TOTAL 0.3 mg/dL (0.2-1.0); CALCIUM, SERUM 8.6 mg/dL (8.5-10.1); CARBON DIOXIDE 24 mmol/L (21-32); CHLORIDE 109 mmol/L (98-107); GLUCOSE 84 mg/dL (74-106); POTASSIUM 3.6 mmol/L (3.5-5.1); SODIUM SERUM 141 mmol/L (136-145); TOTAL PROTEIN, SERUM 5.5 g/dL (6.4-8.2); UREA NITROGEN, BLOOD 17 mg/dL (7-18)
[2023-12-07 09:00] VITALS: BP 127/113; TEMP 97.9; O2SAT 98
[2023-12-07] MEDS: BENZONATATE 100 MG CAPSULE PO SCH (12:47)
[2023-12-07] MEDS: HYDROCODONE BIT/HOMATROPINE 5 ML UDC PO PRN (13:51)
[2023-12-07] MEDS ORDERED: ALBUTEROL SULFATE 8 GM HFA.AER.AD IH PRN (14:00)
[2023-12-07 16:00] VITALS: BP 145/77; TEMP 98; O2SAT 93
[2023-12-07 20:00] VITALS: BP 139/60; TEMP 98.2; O2SAT 95
[2023-12-08 04:00] VITALS: BP 158/75; TEMP 97.9; O2SAT 97
[2023-12-08 08:00] VITALS: BP 161/68; TEMP 97.7; O2SAT 97
[2023-12-08 08:39] LABS: ALANINE AMINOTRANSFERASE 25 U/L (12-78); ALBUMIN 2.1 g/dL (3.4-5.0); ALKALINE PHOSPHATASE 112 U/L (46-116); ASPARTATE AMINOTRANSFERASE 31 U/L (15-37); BILIRUBIN,DIRECT 0.1 mg/dL (0.0-0.2); BILIRUBIN,TOTAL 0.4 mg/dL (0.2-1.0); CALCIUM, SERUM 8.5 mg/dL (8.5-10.1); CARBON DIOXIDE 26 mmol/L (21-32); CHLORIDE 108 mmol/L (98-107); GLUCOSE 87 mg/dL (74-106); POTASSIUM 3.5 mmol/L (3.5-5.1); SODIUM SERUM 140 mmol/L (136-145); TOTAL PROTEIN, SERUM 5.4 g/dL (6.4-8.2); UREA NITROGEN, BLOOD 19 mg/dL (7-18)
[2023-12-08 08:44] LABS: BASOPHILS % (AUTO) 0.2 % (0.0-2.0); EOSINOPHILS % (AUTO) 0.1 % (0.0-6.0); HEMATOCRIT 33 % (33-45); HEMOGLOBIN 10.7 g/dL (11.5-14.8); LYMPHOCYTES # (AUTO) 0.7 K/uL (0.8-4.8); LYMPHOCYTES % (AUTO) 13.3 % (20.0-44.0); MEAN CORPUSCULAR HEMOGLOBIN 29 PG (26.0-33.0); MEAN CORPUSCULAR HGB CONC 33 g/dl (31.0-36.0); MEAN CORPUSCULAR VOLUME 88 fL (82-100); MONOCYTES # (AUTO) 0.6 K/uL (0.1-1.30); MONOCYTES % (AUTO) 11.2 % (2.0-12.0); NEUTROPHILS # (AUTO) 4.1 K/uL (1.8-8.9); NEUTROPHILS % (AUTO) 75.2 % (43.0-81.0); PLATELET COUNT (AUTO) 146 K/uL (150-450); RED BLOOD CELL COUNT(AUTO) 3.72 MIL/uL (4.0-5.2); RED CELL DISTRIBUTION WIDTH 23.9 % (11.5-15.0); WHITE BLOOD COUNT (AUTO) 5.5 K/uL (4.3-11.0)
[2023-12-08 09:01] LABS: INR 0.97 (0.91-1.10); PARTIAL THROMBOPLASTIN TIME 26.2 SEC (24.3-34.3); PROTHROMBIN TIME 10.3 SECS (9.2-11.1)
[2023-12-08 16:00] VITALS: BP 151/66; TEMP 98; O2SAT 97
[2023-12-08 20:00] VITALS: BP 133/66; TEMP 98.4; O2SAT 96
[2023-12-09 04:00] VITALS: BP 143/67; TEMP 97.9; O2SAT 97
[2023-12-09 08:00] VITALS: BP 150/92; TEMP 98.8; O2SAT 97
[2023-12-09 09:32] LABS: BASOPHILS % (AUTO) 0.2 % (0.0-2.0); EOSINOPHILS # (AUTO) 0.1 K/uL (0.0-0.7); EOSINOPHILS % (AUTO) 1.1 % (0.0-6.0); HEMATOCRIT 32 % (33-45); HEMOGLOBIN 10.5 g/dL (11.5-14.8); LYMPHOCYTES # (AUTO) 0.9 K/uL (0.8-4.8); LYMPHOCYTES % (AUTO) 17.1 % (20.0-44.0); MEAN CORPUSCULAR HEMOGLOBIN 29 PG (26.0-33.0); MEAN CORPUSCULAR HGB CONC 33 g/dl (31.0-36.0); MEAN CORPUSCULAR VOLUME 87 fL (82-100); MONOCYTES # (AUTO) 0.4 K/uL (0.1-1.30); MONOCYTES % (AUTO) 7.7 % (2.0-12.0); NEUTROPHILS % (AUTO) 73.9 % (43.0-81.0); PLATELET COUNT (AUTO) 148 K/uL (150-450); RED BLOOD CELL COUNT(AUTO) 3.65 MIL/uL (4.0-5.2); WHITE BLOOD COUNT (AUTO) 5.4 K/uL (4.3-11.0)
[2023-12-09 09:45] LABS: INR 0.99 (0.91-1.10); PARTIAL THROMBOPLASTIN TIME 26.2 SEC (24.3-34.3); PROTHROMBIN TIME 10.5 SECS (9.2-11.1)
[2023-12-09 09:58] LABS: ALANINE AMINOTRANSFERASE 22 U/L (12-78); ALBUMIN 1.8 g/dL (3.4-5.0); ALKALINE PHOSPHATASE 104 U/L (46-116); ASPARTATE AMINOTRANSFERASE 27 U/L (15-37); BILIRUBIN,DIRECT 0.1 mg/dL (0.0-0.2); BILIRUBIN,TOTAL 0.3 mg/dL (0.2-1.0); CALCIUM, SERUM 7.9 mg/dL (8.5-10.1); CARBON DIOXIDE 24 mmol/L (21-32); CHLORIDE 108 mmol/L (98-107); CREATININE 1.1 mg/dL (0.6-1.3); GLUCOSE 113 mg/dL (74-106); SODIUM SERUM 139 mmol/L (136-145); TOTAL PROTEIN, SERUM 4.8 g/dL (6.4-8.2); UREA NITROGEN, BLOOD 18 mg/dL (7-18)
[2023-12-09] MEDS: POTASSIUM CHLORIDE 20 MEQ TAB.PRT.SR PO SCH (11:17)
[2023-12-09 16:00] VITALS: BP 135/71; TEMP 97.7; O2SAT 97
[2023-12-09 18:00] VITALS: BP 135/71; TEMP 97.7; O2SAT 97
[2023-12-09 20:00] VITALS: BP 139/61; TEMP 98.2; O2SAT 97
[2023-12-10 04:00] VITALS: BP 152/72; TEMP 97.9; O2SAT 97
[2023-12-10 08:00] VITALS: BP 159/76; TEMP 97.8; O2SAT 97
[2023-12-10 12:00] VITALS: BP 159/76; TEMP 97.8; O2SAT 97
[2023-12-10 16:00] VITALS: BP 134/72; TEMP 98.6; O2SAT 97
[2023-12-10 20:00] VITALS: BP 132/59; TEMP 99; O2SAT 96
[2023-12-10] MEDS: GUAIFENESIN LA 600 MG TABLET.SA PO SCH (21:06)
[2023-12-11 04:00] VITALS: BP 155/84; TEMP 97.7; O2SAT 98
[2023-12-11 08:00] VITALS: BP 164/64; TEMP 97.7; O2SAT 98
[2023-12-11 08:24] LABS: BASOPHILS % (AUTO) 0.6 % (0.0-2.0); EOSINOPHILS # (AUTO) 0.1 K/uL (0.0-0.7); EOSINOPHILS % (AUTO) 2.8 % (0.0-6.0); HEMATOCRIT 33 % (33-45); HEMOGLOBIN 10.8 g/dL (11.5-14.8); LYMPHOCYTES # (AUTO) 0.7 K/uL (0.8-4.8); LYMPHOCYTES % (AUTO) 13.1 % (20.0-44.0); MEAN CORPUSCULAR HEMOGLOBIN 29 PG (26.0-33.0); MEAN CORPUSCULAR HGB CONC 33 g/dl (31.0-36.0); MEAN CORPUSCULAR VOLUME 87 fL (82-100); MONOCYTES # (AUTO) 0.4 K/uL (0.1-1.30); MONOCYTES % (AUTO) 8.1 % (2.0-12.0); NEUTROPHILS # (AUTO) 3.9 K/uL (1.8-8.9); NEUTROPHILS % (AUTO) 75.4 % (43.0-81.0); PLATELET COUNT (AUTO) 144 K/uL (150-450); RED BLOOD CELL COUNT(AUTO) 3.75 MIL/uL (4.0-5.2); RED CELL DISTRIBUTION WIDTH 23.3 % (11.5-15.0); WHITE BLOOD COUNT (AUTO) 5.2 K/uL (4.3-11.0)
[2023-12-11 08:30] LABS: CARBON DIOXIDE 25 mmol/L (21-32); CHLORIDE 110 mmol/L (98-107); CREATININE 1.1 mg/dL (0.6-1.3); GLUCOSE 96 mg/dL (74-106); MAGNESIUM 1.8 mg/dL (1.8-2.4); PHOSPHORUS 3.1 mg/dL (2.5-4.9); POTASSIUM 3.4 mmol/L (3.5-5.1); SODIUM SERUM 141 mmol/L (136-145); UREA NITROGEN, BLOOD 13 mg/dL (7-18)
[2023-12-11] MEDS: POTASSIUM CHLORIDE 20 MEQ TAB.PRT.SR PO SCH (11:36)
[2023-12-11 16:00] VITALS: BP 154/65; TEMP 98.2; O2SAT 98
[2023-12-11 20:00] VITALS: BP 138/63; TEMP 98.8; O2SAT 96
[2023-12-12 04:00] VITALS: BP 138/63; TEMP 98.8; O2SAT 96
[2023-12-12 08:00] VITALS: BP 165/90; TEMP 98.4; O2SAT 98
[2023-12-12] MEDS ORDERED: IOHEXOL-300 100 ML VIAL IV ONE (14:12)
[2023-12-12] MEDS ORDERED: IV NS 0.9% 250 ML IV ONE (14:12)
[2023-12-12 16:00] VITALS: BP 145/64; TEMP 98.8; O2SAT 97
[2023-12-12 20:00] VITALS: BP 137/68; TEMP 99.1; O2SAT 94
[2023-12-12] MEDS: INDOMETHACIN 25 MG CAPSULE PO SCH (20:34)
[2023-12-13 04:00] VITALS: BP 142/94; TEMP 97.7; O2SAT 99
[2023-12-13 08:00] VITALS: BP 148/71; TEMP 97.9; O2SAT 98
[2023-12-13 09:00] LABS: BASOPHILS % (AUTO) 0.7 % (0.0-2.0); EOSINOPHILS # (AUTO) 0.2 K/uL (0.0-0.7); EOSINOPHILS % (AUTO) 3.7 % (0.0-6.0); HEMATOCRIT 31 % (33-45); HEMOGLOBIN 10.1 g/dL (11.5-14.8); LYMPHOCYTES # (AUTO) 0.6 K/uL (0.8-4.8); LYMPHOCYTES % (AUTO) 14.4 % (20.0-44.0); MEAN CORPUSCULAR HEMOGLOBIN 29 PG (26.0-33.0); MEAN CORPUSCULAR HGB CONC 32 g/dl (31.0-36.0); MEAN CORPUSCULAR VOLUME 89 fL (82-100); MONOCYTES # (AUTO) 0.6 K/uL (0.1-1.30); MONOCYTES % (AUTO) 13.8 % (2.0-12.0); NEUTROPHILS # (AUTO) 2.9 K/uL (1.8-8.9); NEUTROPHILS % (AUTO) 67.4 % (43.0-81.0); PLATELET COUNT (AUTO) 144 K/uL (150-450); RED BLOOD CELL COUNT(AUTO) 3.51 MIL/uL (4.0-5.2); RED CELL DISTRIBUTION WIDTH 23.7 % (11.5-15.0); WHITE BLOOD COUNT (AUTO) 4.4 K/uL (4.3-11.0)
[2023-12-13 09:35] LABS: CALCIUM, SERUM 8.5 mg/dL (8.5-10.1); CARBON DIOXIDE 24 mmol/L (21-32); CHLORIDE 112 mmol/L (98-107); GLUCOSE 89 mg/dL (74-106); MAGNESIUM 1.7 mg/dL (1.8-2.4); PHOSPHORUS 3.2 mg/dL (2.5-4.9); POTASSIUM 3.5 mmol/L (3.5-5.1); SODIUM SERUM 144 mmol/L (136-145); UREA NITROGEN, BLOOD 11 mg/dL (7-18)
[2023-12-13 16:00] VITALS: BP 139/60; TEMP 98.2; O2SAT 98
[2023-12-13 20:00] VITALS: BP 146/56; TEMP 98.2; O2SAT 98
[2023-12-14] MEDS: ZOLPIDEM TARTRATE 5 MG TABLET PO PRN (00:02)
[2023-12-14 04:00] VITALS: BP 146/56; TEMP 98.2; O2SAT 98
[2023-12-14 08:00] VITALS: BP 147/90; TEMP 97.3; O2SAT 97
[2023-12-14 08:00] LABS: APPEARANCE,URINE CLEAR (CLEAR); BILIRUBIN,URINE NEGATIVE (NEGATIVE); BLOOD, URINE NEGATIVE Ery/uL (NEGATIVE); COLOR,URINE YELLOW (YELLOW); KETONES,URINE NEGATIVE (NEGATIVE); LEUKOCYTE ESTERASE ,URINE NEGATIVE (NEGATIVE); NITRITE, URINE NEGATIVE (NEGATIVE); PROTEIN,URINE TRACE mg/dl (NEGATIVE); UGLUCOSE NEGATIVE (NEGATIVE); UROBILINOGEN,URINE 0.2 EU/dL (0.2)
[2023-12-14 08:42] LABS: ADD URINE CULTURE NO; BACTERIA,URINE None seen /HPF (None Seen); RBC,URINE NONE SEEN /HPF (0-2); WBC,URINE NONE SEEN /HPF (0-3)
[2023-12-14 08:43] LABS: CALCIUM OXALATE CRYSTALS,UR Moderate /HPF (None Seen); MUCUS,URINE Few /LPF (None Seen)
[2023-12-14] MEDS: COLCHICINE 0.6 MG TABLET PO SCH (09:18)
[2023-12-14] MEDS: ALTEPLASE CATHFLO 2 MG/VIAL XX ONE (14:06)
[2023-12-14 16:00] VITALS: BP 129/59; TEMP 98.4; O2SAT 97
[2023-12-14 20:00] VITALS: BP 142/66; TEMP 98.1; O2SAT 98
[2023-12-15 04:00] VITALS: BP 132/87; TEMP 98.1; O2SAT 98
[2023-12-15 08:00] VITALS: BP 163/72; TEMP 97.7; O2SAT 98
[2023-12-15 09:11] VITALS: BP 163/72
[2023-12-16] MEDS ORDERED: PANTOPRAZOLE 40 MG TABLET.DR PO SCH (09:00)
== END 2023-12-15 15:47 | DRG 393 ==
LOC: ER 14:15 → MEDSG1 11-24 09:39
PROVIDERS: ATTEND Nurse Practitioner Family
PROC: XW033E5 Introduction of Remdesivir Anti-infective into Peripheral Vein, Percutaneous Approach, New Technology Group 5 (ICD-10-PCS; principal; 2023-12-05)
DX: N82.3 Fistula of vagina to large intestine (principal); J12.82 Pneumonia due to coronavirus disease 2019; U07.1 COVID-19; E44.0 Moderate protein-calorie malnutrition; N39.0 Urinary tract infection, site not specified; I31.39 Other pericardial effusion (noninflammatory); J98.11 Atelectasis; Z85.038 Personal history of other malignant neoplasm of large intestine; Z93.3 Colostomy status; E87.6 Hypokalemia; J20.8 Acute bronchitis due to other specified organisms; Z90.49 Acquired absence of other specified parts of digestive tract; Z88.2 Allergy status to sulfonamides; Z88.1 Allergy status to other antibiotic agents; Z88.0 Allergy status to penicillin; Z79.82 Long term (current) use of aspirin; Z79.899 Other long term (current) drug therapy; D64.9 Anemia, unspecified; E78.5 Hyperlipidemia, unspecified; D69.6 Thrombocytopenia, unspecified; E88.09 Other disorders of plasma-protein metabolism, not elsewhere classified; K52.9 Noninfective gastroenteritis and colitis, unspecified; K59.00 Constipation, unspecified; K57.30 Diverticulosis of large intestine without perforation or abscess without bleeding; Z96.642 Presence of left artificial hip joint; Z90.710 Acquired absence of both cervix and uterus; Z87.81 Personal history of (healed) traumatic fracture
CPT/HCPCS: 36415; 70220-TC; 71045-TC; 71270-TC; 74018; 74178; 80048-TC; 80061-TC; 80076-TC; 81001; 82728-TC; 83605-TC; 83690-TC; 83735-TC; 84100-TC; 84443-TC; 84484-TC; 85025-TC; 85378-TC; 85610-TC; 85730-TC; 86140-TC; 87040-TC; 87086-TC; 89055; 93307-TC; 94799-TC; 97110-TC; 97116-TC; 97164; 97530-TC; A4216; A4223; A6403; G0378; J0744; J1100; J1650; J1956; J2048; J2185; J2405; J2997; J3490; J7030; J7050; Q9967

== ENCOUNTER 2024-01-27 18:22 | Emergency (ER) | payer MEDICARE ==
[~2024-01-27] VITALS: Ht 152.4 cm; Wt 68.0 kg
[~2024-01-27 18:22] MED LIST changes: -POLY17PO4 PO
[2024-01-27 18:30] VITALS: BP 107/52; TEMP 98.1; O2SAT 98
== END 2024-01-27 20:58 | disposition home or self-care (01) ==
LOC: ER 18:25
DX: I10 Essential (primary) hypertension (principal); Z43.3 Encounter for attention to colostomy; Z79.82 Long term (current) use of aspirin; Z85.038 Personal history of other malignant neoplasm of large intestine; Z88.0 Allergy status to penicillin; Z88.1 Allergy status to other antibiotic agents; Z88.2 Allergy status to sulfonamides; Z90.49 Acquired absence of other specified parts of digestive tract; Z60.2 Problems related to living alone

== ENCOUNTER 2024-01-28 11:17 | Emergency (ER) | payer MEDICARE ==
[~2024-01-28] VITALS: Ht 152.4 cm; Wt 68.0 kg
[2024-01-28 11:32] VITALS: BP 122/69; TEMP 98.4
[2024-01-28 13:07] VITALS: O2SAT 100
== END 2024-01-28 13:10 | disposition home or self-care (01) ==
LOC: ER 11:19
DX: Z43.3 Encounter for attention to colostomy (principal); I10 Essential (primary) hypertension; Z79.82 Long term (current) use of aspirin; Z88.0 Allergy status to penicillin; Z88.1 Allergy status to other antibiotic agents; Z88.2 Allergy status to sulfonamides; Z86.79 Personal history of other diseases of the circulatory system; Z60.2 Problems related to living alone

== ENCOUNTER 2024-01-28 15:55 | Inpatient (IN) | payer MEDICARE ==
[~2024-01-28] VITALS: Ht 167.6 cm; Wt 73.0 kg
[2024-01-28 17:02] LABS: BASOPHILS % (AUTO) 0.6 % (0.0-2.0); EOSINOPHILS # (AUTO) 0.2 K/uL (0.0-0.7); HEMATOCRIT 30 % (33-45); HEMOGLOBIN 10.3 g/dL (11.5-14.8); LYMPHOCYTES # (AUTO) 0.7 K/uL (0.8-4.8); LYMPHOCYTES % (AUTO) 10.9 % (20.0-44.0); MEAN CORPUSCULAR HEMOGLOBIN 33 PG (26.0-33.0); MEAN CORPUSCULAR HGB CONC 34 g/dl (31.0-36.0); MEAN CORPUSCULAR VOLUME 95 fL (82-100); MONOCYTES # (AUTO) 0.4 K/uL (0.1-1.30); MONOCYTES % (AUTO) 6.7 % (2.0-12.0); NEUTROPHILS % (AUTO) 78.8 % (43.0-81.0); PLATELET COUNT (AUTO) 215 K/uL (150-450); RED BLOOD CELL COUNT(AUTO) 3.15 MIL/uL (4.0-5.2); RED CELL DISTRIBUTION WIDTH 21.9 % (11.5-15.0); WHITE BLOOD COUNT (AUTO) 6.3 K/uL (4.3-11.0)
[2024-01-28 17:12] LABS: CARBON DIOXIDE 26 mmol/L (21-32); CHLORIDE 108 mmol/L (98-107); CREATININE 1.3 mg/dL (0.6-1.3); GLUCOSE 102 mg/dL (74-106); POTASSIUM 3.5 mmol/L (3.5-5.1); SODIUM SERUM 145 mmol/L (136-145); UREA NITROGEN, BLOOD 18 mg/dL (7-18)
[2024-01-28 17:18] LABS: ALANINE AMINOTRANSFERASE 28 U/L (12-78); ALKALINE PHOSPHATASE 147 U/L (46-116); ASPARTATE AMINOTRANSFERASE 23 U/L (15-37); BILIRUBIN,DIRECT 0.3 mg/dL (0.0-0.2); BILIRUBIN,TOTAL 1.6 mg/dL (0.2-1.0); LIPASE 31 U/L (16-77); TOTAL PROTEIN, SERUM 6.2 g/dL (6.4-8.2)
[2024-01-28 18:21] LABS: APPEARANCE,URINE CLEAR (CLEAR); COLOR,URINE YELLOW (YELLOW); PROTEIN,URINE 100 mg/dl (NEGATIVE)
[2024-01-28 18:22] LABS: BILIRUBIN,URINE SMALL (NEGATIVE); BLOOD, URINE NEGATIVE Ery/uL (NEGATIVE); KETONES,URINE TRACE mg/dL (NEGATIVE); LEUKOCYTE ESTERASE ,URINE NEGATIVE (NEGATIVE); NITRITE, URINE NEGATIVE (NEGATIVE); UGLUCOSE NEGATIVE (NEGATIVE); UROBILINOGEN,URINE 0.2 EU/dL (0.2)
[2024-01-28 18:23] LABS: ADD URINE CULTURE NO; BACTERIA,URINE Few /HPF (None Seen); RBC,URINE 0-2 /HPF (0-2); SQUAMOUS EPITHELIAL CELL,UR Few /HPF (None Seen)
[2024-01-28 19:54] VITALS: BP 124/66; TEMP 97.5; O2SAT 100
[2024-01-28 20:00] VITALS: BP 161/61; TEMP 98.1; O2SAT 100
[2024-01-28] MEDS ORDERED: MAGNESIUM HYDROXIDE 30 ML UDC PO PRN (20:00)
[2024-01-28] MEDS: ENOXAPARIN SODIUM 30 MG/0.3 ML DISP.SYRIN SQ SCH (20:00)
[2024-01-28] MEDS ORDERED: ONDANSETRON HCL/PF 4 MG/2 ML VIAL IVP PRN (20:00)
[2024-01-28] MEDS ORDERED: Z GUARD REMEDY 4 OZ OINT TP PRN (20:00)
[2024-01-28] MEDS ORDERED: ACETAMINOPHEN 325 MG TABLET PO PRN (20:00)
[2024-01-28] MEDS: LACTOBACILLUS RHAMNOSUS GG 1 EACH CAP.SPRINK PO SCH (20:09)
[2024-01-28] MEDS: HYDROCODONE/APAP 5/325MG TABLET PO PRN (22:28)
[2024-01-29] MEDS: PANTOPRAZOLE 40 MG TABLET.DR PO SCH (06:39)
[2024-01-29 07:30] VITALS: BP 130/53; TEMP 97.9; O2SAT 96
[2024-01-29 11:00] LABS: BASOPHILS % (AUTO) 0.5 % (0.0-2.0); EOSINOPHILS # (AUTO) 0.4 K/uL (0.0-0.7); HEMATOCRIT 29 % (33-45); HEMOGLOBIN 9.5 g/dL (11.5-14.8); LYMPHOCYTES # (AUTO) 0.6 K/uL (0.8-4.8); LYMPHOCYTES % (AUTO) 12.7 % (20.0-44.0); MEAN CORPUSCULAR HEMOGLOBIN 32 PG (26.0-33.0); MEAN CORPUSCULAR HGB CONC 33 g/dl (31.0-36.0); MEAN CORPUSCULAR VOLUME 96 fL (82-100); MONOCYTES # (AUTO) 0.5 K/uL (0.1-1.30); MONOCYTES % (AUTO) 10.8 % (2.0-12.0); NEUTROPHILS # (AUTO) 3.5 K/uL (1.8-8.9); PLATELET COUNT (AUTO) 161 K/uL (150-450); RED BLOOD CELL COUNT(AUTO) 3.01 MIL/uL (4.0-5.2); RED CELL DISTRIBUTION WIDTH 21.7 % (11.5-15.0); WHITE BLOOD COUNT (AUTO) 5.1 K/uL (4.3-11.0)
[2024-01-29 11:13] LABS: CALCIUM, SERUM 8.9 mg/dL (8.5-10.1); CARBON DIOXIDE 26 mmol/L (21-32); CHLORIDE 109 mmol/L (98-107); CREATININE 1.3 mg/dL (0.6-1.3); GLUCOSE 109 mg/dL (74-106); MAGNESIUM 1.6 mg/dL (1.8-2.4); PHOSPHORUS 3.2 mg/dL (2.5-4.9); POTASSIUM 3.1 mmol/L (3.5-5.1); SODIUM SERUM 143 mmol/L (136-145); UREA NITROGEN, BLOOD 15 mg/dL (7-18)
[2024-01-29] MEDS: POTASSIUM CHLORIDE 20 MEQ TAB.PRT.SR PO SCH (12:08)
[2024-01-29] MEDS: MAGNESIUM OXIDE 400 MG TABLET PO ONE (12:08)
[2024-01-29 16:00] VITALS: BP 134/61; TEMP 98.1; O2SAT 97
[2024-01-29 20:00] VITALS: BP 147/54; TEMP 98.4; O2SAT 97
[2024-01-30 07:30] VITALS: BP 143/58; TEMP 97.5; O2SAT 96
[2024-01-30] MEDS: LOPERAMIDE HCL (2 MG CAP) 2 MG CAPSULE PO PRN (10:15)
[2024-01-30 16:00] VITALS: BP 128/57; TEMP 98.2; O2SAT 96
[2024-01-30 20:00] VITALS: BP 140/68; TEMP 97.7; O2SAT 100
[2024-01-31 08:00] VITALS: BP 165/68; TEMP 98.4; O2SAT 97
[2024-01-31] MEDS: NEOMY SULF/BACITRAC ZN/POLY 15 GM TUBE TP SCH (08:54)
== END 2024-01-31 18:10 | DRG 394 ==
LOC: ER 15:58 → MED 18:30
PROVIDERS: ADMIT Nurse Practitioner Family; ATTEND Nurse Practitioner Family
DX: K62.89 Other specified diseases of anus and rectum (principal); C18.9 Malignant neoplasm of colon, unspecified; E44.1 Mild protein-calorie malnutrition; I31.39 Other pericardial effusion (noninflammatory); R62.7 Adult failure to thrive; E86.0 Dehydration; E78.5 Hyperlipidemia, unspecified; Z85.038 Personal history of other malignant neoplasm of large intestine; Z86.16 Personal history of COVID-19; Z93.3 Colostomy status; I13.10 Hypertensive heart and chronic kidney disease without heart failure, with stage 1 through stage 4 chronic kidney disease, or unspecified chronic kidney disease; N18.9 Chronic kidney disease, unspecified; Z88.1 Allergy status to other antibiotic agents; Z88.2 Allergy status to sulfonamides; Z88.0 Allergy status to penicillin; Z91.018 Allergy to other foods; Z79.82 Long term (current) use of aspirin; Z79.899 Other long term (current) drug therapy; K57.30 Diverticulosis of large intestine without perforation or abscess without bleeding; E80.6 Other disorders of bilirubin metabolism; Z87.19 Personal history of other diseases of the digestive system; D64.9 Anemia, unspecified; E88.09 Other disorders of plasma-protein metabolism, not elsewhere classified; E83.42 Hypomagnesemia; E87.6 Hypokalemia; Z85.72 Personal history of non-Hodgkin lymphomas; Z92.21 Personal history of antineoplastic chemotherapy; S90.412A Abrasion, left great toe, initial encounter; S90.411A Abrasion, right great toe, initial encounter; X58.XXXA Exposure to other specified factors, initial encounter; Y92.9 Unspecified place or not applicable; R19.7 Diarrhea, unspecified; D50.9 Iron deficiency anemia, unspecified; Z87.81 Personal history of (healed) traumatic fracture; K60.30 Anal fistula, unspecified
CPT/HCPCS: 36415; 80048-TC; 80076-TC; 81001; 83690-TC; 83735-TC; 84100-TC; 85025-TC; 89055; 93307-TC; 97112-TC; 97116-TC; 97530-TC; 97535-TC; A6253; A6403; G0378; J1650

== ENCOUNTER 2024-03-10 14:53 | Inpatient (IN) | payer MEDICARE ==
[~2024-03-10] VITALS: Ht 167.6 cm; Wt 74.4 kg
[2024-03-10] MEDS ORDERED: ACETAMINOPHEN ES 500 MG TABLET ONE (15:54)
[2024-03-10] MEDS: ACETAMINOPHEN ES 500 MG TABLET PO ONE (16:07)
[2024-03-10 18:08] LABS: BASOPHILS % (AUTO) 0.3 % (0.0-2.0); EOSINOPHILS # (AUTO) 0.2 K/uL (0.0-0.7); EOSINOPHILS % (AUTO) 3.7 % (0.0-6.0); HEMATOCRIT 33 % (33-45); HEMOGLOBIN 10.7 g/dL (11.5-14.8); LYMPHOCYTES # (AUTO) 0.4 K/uL (0.8-4.8); LYMPHOCYTES % (AUTO) 8.1 % (20.0-44.0); MEAN CORPUSCULAR HEMOGLOBIN 33 PG (26.0-33.0); MEAN CORPUSCULAR HGB CONC 33 g/dl (31.0-36.0); MEAN CORPUSCULAR VOLUME 100 fL (82-100); MONOCYTES # (AUTO) 0.7 K/uL (0.1-1.30); MONOCYTES % (AUTO) 15.2 % (2.0-12.0); NEUTROPHILS # (AUTO) 3.3 K/uL (1.8-8.9); NEUTROPHILS % (AUTO) 72.7 % (43.0-81.0); PLATELET COUNT (AUTO) 100 K/uL (150-450); RED BLOOD CELL COUNT(AUTO) 3.29 MIL/uL (4.0-5.2); RED CELL DISTRIBUTION WIDTH 23.4 % (11.5-15.0); WHITE BLOOD COUNT (AUTO) 4.5 K/uL (4.3-11.0)
[2024-03-10] MEDS ORDERED: MORPHINE SULFATE INJ 4 MG/ML DISP.SYRIN ONE (18:14)
[2024-03-10] MEDS ORDERED: ONDANSETRON HCL/PF 4 MG/2 ML VIAL ONE ×2 (18:14→20:32)
[2024-03-10 18:18] LABS: CALCIUM, SERUM 8.6 mg/dL (8.5-10.1); CARBON DIOXIDE 26 mmol/L (21-32); CHLORIDE 106 mmol/L (98-107); CREATININE 1.4 mg/dL (0.6-1.3); GLUCOSE 99 mg/dL (74-106); POTASSIUM 4.4 mmol/L (3.5-5.1); SODIUM SERUM 136 mmol/L (136-145); UREA NITROGEN, BLOOD 29 mg/dL (7-18)
[2024-03-10 18:26] LABS: INR 1.06 (0.91-1.10); PARTIAL THROMBOPLASTIN TIME 22.1 SEC (24.3-34.3); PROTHROMBIN TIME 10.9 SECS (9.2-11.1)
[2024-03-10] MEDS: ONDANSETRON HCL/PF 4 MG/2 ML VIAL IVP ONE ×2 (18:50→20:45)
[2024-03-10] MEDS: MORPHINE SULFATE INJ 2 MG/ML DISP.SYRIN IV ONE (19:10)
[2024-03-10] MEDS ORDERED: HYDROMORPHONE 1 MG/1 ML DISP.SYRIN ONE (20:33)
[2024-03-10] MEDS: HYDROMORPHONE INJ 2 MG/ML DISP.SYRIN IV ONE (20:40)
[2024-03-10] MEDS ORDERED: MAG HYDROX/AL HYDROX/SIMETH 30 ML UDC PO PRN (21:30)
[2024-03-10] MEDS ORDERED: ACETAMINOPHEN 325 MG TABLET PO PRN (21:30)
[2024-03-10] MEDS ORDERED: MAGNESIUM HYDROXIDE 30 ML UDC PO PRN (21:30)
[2024-03-10] MEDS ORDERED: ONDANSETRON HCL/PF 4 MG/2 ML VIAL IVP PRN (21:30)
[2024-03-10 23:00] VITALS: BP 113/50; TEMP 97.7; O2SAT 99
[2024-03-11] MEDS: HYDROCODONE/APAP 5/325MG TABLET PO PRN (00:33)
[2024-03-11] MEDS: MORPHINE SULFATE INJ 2 MG/ML DISP.SYRIN IV PRN (03:16)
[2024-03-11 06:44] LABS: BASOPHILS % (AUTO) 0.3 % (0.0-2.0); EOSINOPHILS # (AUTO) 0.3 K/uL (0.0-0.7); EOSINOPHILS % (AUTO) 8.3 % (0.0-6.0); HEMATOCRIT 28 % (33-45); HEMOGLOBIN 9.6 g/dL (11.5-14.8); LYMPHOCYTES # (AUTO) 0.5 K/uL (0.8-4.8); LYMPHOCYTES % (AUTO) 13.1 % (20.0-44.0); MEAN CORPUSCULAR HEMOGLOBIN 33 PG (26.0-33.0); MEAN CORPUSCULAR HGB CONC 34 g/dl (31.0-36.0); MEAN CORPUSCULAR VOLUME 98 fL (82-100); MONOCYTES # (AUTO) 0.6 K/uL (0.1-1.30); MONOCYTES % (AUTO) 17.4 % (2.0-12.0); NEUTROPHILS # (AUTO) 2.1 K/uL (1.8-8.9); NEUTROPHILS % (AUTO) 60.9 % (43.0-81.0); PLATELET COUNT (AUTO) 90 K/uL (150-450); RED CELL DISTRIBUTION WIDTH 23.3 % (11.5-15.0); WHITE BLOOD COUNT (AUTO) 3.5 K/uL (4.3-11.0)
[2024-03-11 07:00] VITALS: BP 119/46; TEMP 97.5; O2SAT 98
[2024-03-11 07:32] LABS: CREATININE 1.3 mg/dL (0.6-1.3); MAGNESIUM 1.7 mg/dL (1.8-2.4); PHOSPHORUS 3.1 mg/dL (2.5-4.9); POTASSIUM 3.9 mmol/L (3.5-5.1)
[2024-03-11 08:26] LABS: CALCIUM, SERUM 8.1 mg/dL (8.5-10.1)
[2024-03-11] MEDS: PANTOPRAZOLE 40 MG VIAL IV SCH (08:48)
[2024-03-11] MEDS: FERROUS SULFATE (325 MG) 325 MG/TAB TABLET PO SCH (08:49)
[2024-03-11] MEDS: ASPIRIN EC 81 MG TABLET.DR PO SCH (08:49)
[2024-03-11] MEDS: FUROSEMIDE 20 MG TABLET PO SCH (08:50)
[2024-03-11] MEDS: CYANOCOBALAMIN 500 MCG TABLET PO SCH (08:50)
[2024-03-11] MEDS: AMLODIPINE BESYLATE 5 MG TABLET PO SCH (09:00)
[2024-03-11 10:39] LABS: ANISOCYTOSIS 1+; BASOPHILS % (MANUAL) 0 % (0.0-2.0); EOSINOPHILS % (MANUAL) 7 % (0-4); LYMPHOCYTES % (MANUAL) 11 % (16-48); MONOCYTES % (MANUAL) 15 % (0-11.0); NEUTROPHILS % (MANUAL) 67 (42-76); PLATELET ESTIMATE DECREASED
[2024-03-11] MEDS: MAGNESIUM OXIDE 400 MG TABLET PO ONE (15:49)
[2024-03-11 16:00] VITALS: BP 119/58; TEMP 97.7; O2SAT 97
[2024-03-11] MEDS: ATORVASTATIN 10 MG TABLET PO SCH (18:02)
[2024-03-11 20:00] VITALS: BP 133/52; TEMP 97.3; O2SAT 98
[2024-03-12 08:02] LABS: BASOPHILS % (AUTO) 0.2 % (0.0-2.0); EOSINOPHILS # (AUTO) 0.2 K/uL (0.0-0.7); EOSINOPHILS % (AUTO) 5.5 % (0.0-6.0); HEMATOCRIT 29 % (33-45); HEMOGLOBIN 10.1 g/dL (11.5-14.8); LYMPHOCYTES # (AUTO) 0.4 K/uL (0.8-4.8); LYMPHOCYTES % (AUTO) 9.1 % (20.0-44.0); MEAN CORPUSCULAR HEMOGLOBIN 34 PG (26.0-33.0); MEAN CORPUSCULAR HGB CONC 35 g/dl (31.0-36.0); MEAN CORPUSCULAR VOLUME 98 fL (82-100); MONOCYTES # (AUTO) 0.7 K/uL (0.1-1.30); MONOCYTES % (AUTO) 16.7 % (2.0-12.0); NEUTROPHILS # (AUTO) 2.7 K/uL (1.8-8.9); NEUTROPHILS % (AUTO) 68.5 % (43.0-81.0); PLATELET COUNT (AUTO) 90 K/uL (150-450); RED BLOOD CELL COUNT(AUTO) 2.99 MIL/uL (4.0-5.2); RED CELL DISTRIBUTION WIDTH 22.7 % (11.5-15.0); WHITE BLOOD COUNT (AUTO) 3.9 K/uL (4.3-11.0)
[2024-03-12 08:30] VITALS: BP 130/63; TEMP 97; O2SAT 98
[2024-03-12 08:30] LABS: CALCIUM, SERUM 8.3 mg/dL (8.5-10.1); CREATININE 1.5 mg/dL (0.6-1.3); MAGNESIUM 1.7 mg/dL (1.8-2.4); PHOSPHORUS 3.4 mg/dL (2.5-4.9); POTASSIUM 3.5 mmol/L (3.5-5.1)
[2024-03-12] MEDS ORDERED: CHOLECALCIFEROL 1,000 UNIT TABLET (VIT D3) PO SCH (09:00)
[2024-03-12 10:39] LABS: BAND % (MANUAL) 1 % (0.0-5.0); EOSINOPHILS % (MANUAL) 6 % (0-4); LYMPHOCYTES % (MANUAL) 6 % (16-48); MONOCYTES % (MANUAL) 14 % (0-11.0); NEUTROPHILS % (MANUAL) 73 (42-76)
[2024-03-12 10:40] LABS: ANISOCYTOSIS 2+; PLATELET ESTIMATE DECREASED
[2024-03-12 16:00] VITALS: BP 122/65; TEMP 97.6; O2SAT 96
[2024-03-12 20:00] VITALS: BP 135/58; TEMP 98.2; O2SAT 100
[2024-03-19] MEDS ORDERED: CAPE500T15 PO (13:41)
== END 2024-03-12 22:09 | disposition short-term general hospital (02) | DRG 552 ==
LOC: ER 15:00 → MED 21:41
PROVIDERS: ATTEND Nurse Practitioner Family
DX: S12.100A Unspecified displaced fracture of second cervical vertebra, initial encounter for closed fracture (principal); N17.9 Acute kidney failure, unspecified; D62 Acute posthemorrhagic anemia; N82.3 Fistula of vagina to large intestine; W18.30XA Fall on same level, unspecified, initial encounter; N18.9 Chronic kidney disease, unspecified; I12.9 Hypertensive chronic kidney disease with stage 1 through stage 4 chronic kidney disease, or unspecified chronic kidney disease; Z93.3 Colostomy status; Y92.009 Unspecified place in unspecified non-institutional (private) residence as the place of occurrence of the external cause; Z85.038 Personal history of other malignant neoplasm of large intestine; Z88.1 Allergy status to other antibiotic agents; Z88.2 Allergy status to sulfonamides; Z88.0 Allergy status to penicillin; Z91.018 Allergy to other foods; Z79.82 Long term (current) use of aspirin; Z79.899 Other long term (current) drug therapy; D63.8 Anemia in other chronic diseases classified elsewhere; D69.6 Thrombocytopenia, unspecified; E11.22 Type 2 diabetes mellitus with diabetic chronic kidney disease; S00.81XA Abrasion of other part of head, initial encounter; E66.9 Obesity, unspecified; Z68.29 Body mass index [BMI] 29.0-29.9, adult; K57.30 Diverticulosis of large intestine without perforation or abscess without bleeding; E78.5 Hyperlipidemia, unspecified; Z92.21 Personal history of antineoplastic chemotherapy; Z92.3 Personal history of irradiation; Z86.79 Personal history of other diseases of the circulatory system
CPT/HCPCS: 36415; 70450-TC; 71045-TC; 72125-TC; 72141-TC; 73564-TC; 80048-TC; 83735-TC; 84100-TC; 85025-TC; 85730-TC; G0378; J1171; J2270; J2405; J2470; L0172